=== PATIENT | female | born 1985 | race Caucasian/White ===

== ENCOUNTER 2017-04-27 18:47 | Observation (INO) | payer OTHER ==
[~2017-04-27] VITALS: Ht 170.2 cm; Wt 90.9 kg
[2017-04-27 18:57] VITALS: BP 131/78; PULSE 99; RESP 16; O2SAT 99
--- NOTE | 2017-04-27 19:23 | ED.REPORT ---
HPI-Headache Date of Service Apr 27, 2017 ED Provider: Chepe De La O DO This is a 31-year-old female who is reportedly 40 weeks 5 days who presents to the emergency department for evaluation of vomiting and mild headache.. Patient states this been going on for the last couple of days. She has had associated dizziness with standing and vomiting 3 starting today. The headache is left-sided wrapping along the side of her head worse with lights and noise. She notes seeing flashing lights and floaters but has no acute visual change. She has tried Tylenol for the pain which has relieved some pain. Patient mentioned having dinner with a friend who was diagnosed with viral meningitis. She denies fevers, chills, neck pain or stiffness, chest pain , shortness of breath, abdominal pain or dysuria. She does mention having loose stools for the last couple of weeks. She denies any complications with this or any previous including preeclampsia, gestational diabetes. She does not have an OB as she is planning for home . She has not had any vaccinations this . Patient is not having any contractions at this time. Patient was seen in OB triage upstairs. "Fetus is active. Category I tracing with moderate variability, >15x15 accels, no decels cells and bl of 120." Sent to ED from there for evaluation for meningitis. Nursing Notes Stated Complaint: DIZZINESS, HEADACHE, VOMITING Chief Complaint: General Complaint Nursing Notes Reviewed: Yes Allergies: Coded Allergies: No Known Allergies (Unverified , 04/27/17) General Time Seen by MD: 19:10 Chief Complaint Headache Hx Obtained From: Patient Sudden in Onset?: Yes Onset Occurred: 2 days ago Past Medical History Past Medical History Past Surgical History [place] teeth removed Smoking History Never Smoker Social History Alcohol Use: Denies alcohol use Drug Use: Denies drug use Review of Systems Basic Review of Systems Respiratory: No shortness of breath, No cough Cardiovascular: No chest pain : No dysuria Hematologic: No bleeding, No bruising Constitutional: Denies: Chills, Fever Eyes: Reports: Photophobia, Denies: Visual loss bilateral Ears / Nose / Throat: Denies: Earache bilateral, Hearing loss bilateral, Sore throat GI: Reports: Diarrhea ("Loose stool"), Nausea, Vomiting, Denies: Abdominal pain, Bloody/tarry stool, Hematemesis Musculoskeletal: Reports: Back pain, Denies: Neck pain Skin: Denies Itching, Denies Rash Neurologic: Reports: Dizziness, Headache, Denies: Abnormal movement, Focal weakness, Seizure, Shaking, Syncope, Vision change Complete sys rev & neg: except as marked. Physical Exam Initial Vital Signs Vital Signs (First) Date Time Temp Pulse Resp B/P Pulse Ox O2 Delivery O2 Flow Rate FiO2 04/27/17 18:57 36.8 99 16 131/78 99 Room Air Initial VS: Reviewed ENT: Mucous membranes moist, Conjunctiva normal, No scleral icterus Respiratory: Breath sounds normal, Clear to auscultation, No respiratory distress Cardiovascular: Regular rate & rhythm, Heart sounds normal, Intact distal pulses Abdomen / GI: Non-tender, No guarding Head / Eyes: Atraumatic, Normocephalic, PERRL, EOMI Pupils: Positive: Photophobia L, Photophobia R Neck: Atraumatic, Supple, Full range of motion, No swelling, Non-tender, No midline vertebral tend Neurologic: Oriented X3, Speech NL, No sensory deficits, CN II - XII intact, Cerebellar NL Protuberant belly secondary to 40 weeks 5 days. Non tender, no RUQ tenderness Interpretation & Diagnostics Lab Results Interpretation Result Diagram: 04/27/17205404/27/172054 Test 04/27/17 20:55 04/27/17 21:59 White Blood Count 9.5th/mm3 (3.8-10.1) Red Blood Count 4.12mil/mm3 (3.90-5.20) Hemoglobin 10.9g/dL (12.0-15.6) Hematocrit 34.1% (35.0-46.0) Mean Corpuscular Volume 82.8fL (81-100) Mean Corpuscular Hemoglobin 26.5pg (27.0-35.0) Mean Corpuscular Hemoglobin Concent 32.0% (32.0-37.0) Red Cell Distribution Width 20.0% (12.3-15.4) Platelet Count 226bil/L (150-400) Neutrophils (%) (Auto) 83.5% (40-74) Lymphocytes (%) (Auto) 12.5% (14-46) Monocytes (%) (Auto) 3.6% (4-12) Eosinophils (%) (Auto) 0.1% (0-5) Basophils (%) (Auto) 0.1% (0-3) Sodium Level 136mEq/L (134-144) Potassium Level 3.8mEq/L (3.5-5.2) Chloride Level 100mEq/L (97-108) Carbon Dioxide Level 17mmol/L (18-29) Blood Urea Nitrogen 5mg/dL (6-20) Creatinine 0.41mg/dL (0.57-1.00) Estimat Glomerular Filtration Rate 261mL/min (>59) Glucose Level 86mg/dL (60-99) Uric Acid 6.4mg/dL (2.6-7.2) Calcium Level 8.4mg/dL (8.5-10.1) Total Bilirubin 0.3mg/dL (0.0-1.2) Aspartate Amino Transf (AST/SGOT) 13U/L (0-50) Alanine Aminotransferase (ALT/SGPT) 8U/L (0-32) Alkaline Phosphatase 126U/L (25-150) C-Reactive Protein 0.4mg/dL (0.0-0.5) Total Protein 6.4g/dL (6.4-8.4) Albumin 3.3g/dL (3.4-5.0) Hold Reyes Top Tube Received (Received) Urine Color Yellow (YELLOW) Urine Appearance Clear (CLEAR,HAZY) Urine pH 6.5 (5.0-8.0) Urine Specific [place] 1.020 (1.003-1.035) Urine Protein Tracemg/dL (NEG,TRACE) Urine Glucose (UA) Negativemg/dL (NEGATIVE) Urine Ketones 80mg/dL (NEGATIVE) Urine Occult Blood Negative (NEGATIVE) Urine Nitrite Negative (NEGATIVE) Urine Bilirubin Negative (NEGATIVE) Urine Urobilinogen Normalmg/dL (NORMAL) Urine Leukocyte Esterase Negative (NEGATIVE) Urine RBC 0-2/hpf (0-2) Urine WBC 0-5/hpf (0-5) Urine Epithelial Cells Few/hpf (NONE-MOD) Urine Crystals None seen (NONE SEEN) Urine Bacteria Few/hpf (NONE-FEW) Urine Hyaline Casts None/lpf (NONE) Urine Granular Casts None seen (NONE SEEN) Urine Waxy Casts None seen (NONE SEEN) Urine Red Blood Cell Casts None seen (NONE SEEN) Urine White Blood Cell Casts None seen (NONE SEEN) Urine Mucus None seen (None Seen) Urine Trichomonas None seen (NONE SEEN) Urine Yeast None (NONE SEEN) Urinalysis Comment None Urine Culture Reflexed Not indicated Re-Eval/Medical Decision Med Decision/Clinical Course This is a 31-year-old female who is reportedly 40 weeks 5 days who presents to the emergency department for headache and dizziness. Patient does not have any signs fevers, chills, neck pain. She does not appear sick on exam , with no focal neurologic deficits or findings consistent with meningitis. Concern is for preeclampsia, HELLP syndrome and meningitis. CBC, CMP, UA, uric acid, CRP are all unremarkable except for mild anemia likely physiologic secondary to . 2L NS, IV Zofran and Tylenol given. Patient symptoms improved with 2 L NS and Tylenol. She no longer has a headache. As she was about to discharge her, when she stood up patient had severe dizziness with the room spinning. Orthostatic vitals were done and patient had a reflex tachycardia. Subsequently gave him 2 more liters of normal saline for a total of 4L in the ED. She is still experiencing significant dizziness with vertiginous symptoms upon sitting up from a lying position. She will need admission for intractable orthostatic dizziness and monitoring of her headache, given new symptom late in her . Consultation : Referral / Consult Name: Thor Anderson MD Consulted With: On-call physician Call Returned at: 02:[address] Justice: Accepts admit Counseled Regarding: Diagnosis, Lab results, Need for follow-up, When/why to return to ED Discharge & Departure Impression: Primary Impression: Postural dizziness Additional Impression: Headache Headache type: unspecified Headache chronicity pattern: unspecified pattern Intractability: not intractable Qualified Code: R51 - Headache Disposition: Home Discharge Condition All VS Reviewed: Yes Condition: Improved Attending Statement I personally took a history of performed several physical examinations. This is a very pleasant 31-year-old female who has orthostatic dizziness associated with dehydration and vomiting. Secondary complaint is a mild headache. She went up to labor and delivery and she shared with him that she been exposed to someone with viral meningitis. They checked her fetus and sent her down here to me. Clinically she does not have any signs or symptoms consistent with meningitis. The headache is mild. She has not had a fever. It seems like the headache actually preceded the exposure to the meningitis. Her vital signs show tachycardia without any evidence of sepsis. Her white blood cell count is normal. Her neck is supple without any nuchal rigidity whatsoever. Initially I was far more concern for preeclampsia. This never declared itself. Her blood pressure remained normal. Her uric acid was normal. She does not have abnormal liver enzymes or evidence of hemolysis. We treated her with IV fluids and antiemetics. This took the headache away completely. After about an hour and a half she had no headache. Her neck was supple throughout her entire ED stay. She did not feel that she had meningitis. I do not feel that she had meningitis. Neither of us felt that a lumbar puncture was indicated. We hydrated her with 4 L of saline. He took this much saline for her to no longer be tachycardic when she stood up. In spite of the fourth liter when she got up to go to the bathroom she felt very dizzy. I started to spin a little bit. The room started to spin. She looked rather vertiginous. After the fourth liter for urine dip still showed 3+ ketones. She is 40 weeks and in no condition be discharged home. I consulted Dr. Anderson We will admit her to labor and delivery for further hydration and observation. At no point did she have any back pain or any evidence of contractions whatsoever. Benedicto Trujillo DO Apr 27, 2017 19:23 Chepe De La O DO Apr 28, 2017 03:06
[2017-04-27] MEDS ORDERED: 0.9% Sodium Chloride 1,000 ML IV SCH (19:25)
[2017-04-27] MEDS ORDERED: Ondansetron 2 mg/mL 2 mL Inj IVPUSH ONE (19:25)
[2017-04-27 21:12] LABS: BASOPHILS % (AUTO) 0.1 % (0-3); EOSINOPHILS % (AUTO) 0.1 % (0-5); MONOCYTES % (AUTO) 3.6 % (4-12); Mean Corpuscular Hemoglobin 26.5 pg (27.0-35.0); Mean Corpuscular Volume 82.8 fL (81-100); NEUTROPHILS % (AUTO) 83.5 % (40-74); Platelet Count 226 bil/L (150-400)
[2017-04-27] MEDS ORDERED: Acetaminophen IV 1,000 MG in IV Premix 1 EACH IV ONE (21:30)
[2017-04-27 22:16] LABS: APPEARANCE,URINE CLEAR (CLEAR,HAZY); COLOR,URINE YELLOW (YELLOW); OCCULT BLOOD,URINE NEGATIVE (NEGATIVE); PH,URINE 6.5 (5.0-8.0); UROBILINOGEN,URINE NORMAL (NORMAL)
[2017-04-27] MEDS ORDERED: _Ondansetron ODT 4 mg Tablet PO PRN (22:35)
[2017-04-27 23:33] VITALS: BP 120/74; PULSE 88; RESP 16; O2SAT 97
[2017-04-28] MEDS ORDERED: 0.9% Sodium Chloride 1,000 ML IV ONE ×2 (00:15→01:30)
[2017-04-28 01:00] VITALS: BP 116/70; PULSE 95; RESP 16; O2SAT 100
[2017-04-28 01:05] VITALS: BP 119/75; PULSE 104; RESP 20; O2SAT 100
[2017-04-28 01:15] VITALS: BP 115/78; PULSE 112; RESP 20; O2SAT 100
[2017-04-28] MEDS ORDERED: 0.9% Sodium Chloride 1,000 ML IV SCH (03:00)
--- NOTE | 2017-04-28 07:07 | HP ---
[address] [address] HISTORY AND PHYSICAL PATIENT: CODI SULLIVAN : 1985 MR#: [id number] ADMIT: 04/28/2017 JOB ID: [id number] DATE: 04/28/2017 HISTORY OF PRESENT ILLNESS: The patient is a 31-year-old, 4 para 3, at 40 weeks and 6 days, estimated due date April 29, 2017 being admitted for observation and management of vertigo and nausea. 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 She reports exposure to a friend who had been diagnosed with viral meningitis. The patient denies fevers and chills, there is no neck pain. No stiffness. She denies abdominal pain and dysuria. She has been worked up for meningitis in the emergency department, based on the labs presentation and symptoms decision was made not to proceed with the spinal tap. Current care was uncomplicated. OBSTETRICAL HISTORY: Three spontaneous vaginal deliveries, the largest was 10 pounds and 4 ounces with her second , the last one was 9 pounds and 4 ounces. SOCIAL HISTORY: Patient denies smoking, alcohol, or illicit recreational drug use. FAMILY HISTORY: Noncontributory. REVIEW OF SYSTEMS: The patient reports diarrhea in the last couple of weeks. He says it is nausea and vomiting. She reports photophobia. She denies right upper quadrant pain. Denies visual changes. Denies swelling of the hands or face. PHYSICAL EXAMINATION: VITAL SIGNS: Blood pressure 112/52, pulse 92, temperature 36.8, pulse ox 99 at room air. HEENT moist mucous membranes, normal conjunctiva, no icterus, PERRLA. General awake alert, oriented x3 in mild to moderate distress because of vertigo, still complaining of some nausea. Vomiting resolved after Zofran was given in the emergency department. Respiratory system good respiratory effort. No respiratory distress. Clear lungs bilaterally. Cardiovascular regular rate and rhythm. Abdomen is gravid, nontender, nondistended, no guarding. Pelvic exam deferred. The last pelvic exam was done by the seamer operator 12 hours ago. The patient was 2 cm dilated, 50% effaced, -2 station. LABS: WBC count 9.5, hemoglobin 10.9, hematocrit 34.1, platelets 226. BUN 5 mg/dL. Creatinine 0.4 mg/dL. Sodium level 136. Potassium level 3.8. ALT 8, AST 13 units/L, alk phosphatase 126 units/L. ASSESSMENT AND PLAN: A 31-year-old, 4, para 3, estimated due date April 29, 2017 presents with nausea and vomiting with headache and vertigo. History of exposure to a person with viral meningitis, workup was done in the emergency department, is negative. Headache resolved, vomiting resolved, still complaining of nausea and vertigo. IV hydration is being provided with lactated Ringer. Scopolamine patch will be given for the vertigo. The patient is being admitted for observation. heart rate monitoring will be continued, current heart rate tracing is 1, baseline 140 beats per minute. The diet will be adjusted as tolerated.
== END 2017-04-28 10:30 | disposition home or self-care (01) ==
LOC: SED 18:47 → FBC 04-28 03:39
PROVIDERS: ADMIT Legal Medicine; ATTEND Legal Medicine
DX: O21.2 Late vomiting of pregnancy (principal); Z3A.40 40 weeks gestation of pregnancy; O26.893 Other specified pregnancy related conditions, third trimester; O99.283 Endocrine, nutritional and metabolic diseases complicating pregnancy, third trimester; R42 Dizziness and giddiness; R51 Headache
CPT/HCPCS: 36415; 80053; 81000; 81002; 84550; 85025; 86140; 96361; 96374; 99284; G0378; G0463; J2405; J7030